=== PATIENT | male | born 1990 | race Caucasian/White ===

== ENCOUNTER 2016-09-13 13:14 | Emergency (ER) | payer SELFPAY | END 2016-09-13 14:45 | disposition left against medical advice (07) | LOC: ER1 13:14 | DX: Z53.21 Procedure and treatment not carried out due to patient leaving prior to being seen by health care provider (principal) | CPT/HCPCS: 93005 ==

== ENCOUNTER 2016-09-19 09:53 | Emergency (ER) | payer OTHER ==
[2016-09-19 10:16] LABS: HEMOGLOBIN 16.4 gm/dl (14.0-17.5); RED BLOOD COUNT 5.6 M/UL (4.20-5.50); WHITE BLOOD COUNT 8.9 K/UL (4.5-11.0)
[2016-09-19 10:38] LABS: BUN/CREATININE RATIO 24 (0-10)
== END 2016-09-19 11:25 | disposition home or self-care (01) ==
LOC: ER1 09:53
PROVIDERS: Family Medicine
DX: R07.89 Other chest pain (principal); F17.210 Nicotine dependence, cigarettes, uncomplicated; F11.10 Opioid abuse, uncomplicated
CPT/HCPCS: 36415; 71010; 80053; 82550; 82553; 83874; 84484; 85025; 93005; 96374; 96376; 99284

== ENCOUNTER 2016-10-10 16:22 | Emergency (ER) | payer OTHER | END 2016-10-10 17:14 | disposition home or self-care (01) | LOC: ER1 16:22 | DX: L08.9 Local infection of the skin and subcutaneous tissue, unspecified (principal) | CPT/HCPCS: 99282 ==

== ENCOUNTER 2020-12-31 15:21 | Emergency (ER) | payer OTHER ==
[~2020-12-31 15:21] MED LIST: EXPECTORANT200 MG PO; FLONASE 0.05% N16 GM; IBUPROFEN600 MG PO; MUCINEX DM ER1 EACH PO; PREDNISONE 50 M50 MG PO; TESSALON PERLE100 MG PO; ZITHROMAX250 MG PO
== END 2020-12-31 17:36 | disposition home or self-care (01) ==
LOC: ER1 15:21
DX: J06.9 Acute upper respiratory infection, unspecified (principal); F17.200 Nicotine dependence, unspecified, uncomplicated; Z20.822 Contact with and (suspected) exposure to COVID-19
CPT/HCPCS: 99284; U0002

== ENCOUNTER 2021-01-15 14:21 | Emergency (ER) | payer OTHER | END 2021-01-15 17:54 | disposition home or self-care (01) | LOC: ER1 14:21 | DX: U07.1 COVID-19 (principal); F17.200 Nicotine dependence, unspecified, uncomplicated | CPT/HCPCS: 99283; U0002 ==

== ENCOUNTER 2021-04-29 09:42 | Emergency (ER) | payer OTHER | END 2021-04-29 10:00 | disposition left against medical advice (07) | LOC: ER1 09:42 | DX: Z53.21 Procedure and treatment not carried out due to patient leaving prior to being seen by health care provider (principal) ==

== ENCOUNTER 2021-04-30 21:03 | Emergency (ER) | payer OTHER | END 2021-04-30 22:20 | disposition home or self-care (01) | LOC: ER1 21:03 | DX: R07.9 Chest pain, unspecified (principal); R06.02 Shortness of breath; F17.210 Nicotine dependence, cigarettes, uncomplicated | CPT/HCPCS: 93005; 99284 ==

== ENCOUNTER 2021-05-20 15:38 | Emergency (ER) | payer OTHER | END 2021-05-20 17:45 | disposition left against medical advice (07) | LOC: ER1 15:38 | DX: R05.9 Cough, unspecified (principal); R09.81 Nasal congestion; F17.200 Nicotine dependence, unspecified, uncomplicated | CPT/HCPCS: 99282 ==

== ENCOUNTER → 2021-11-18 | Outpatient (CLI) | payer OTHER | LOC: KOH-I 13:09 | DX: R07.9 Chest pain, unspecified (principal); F41.1 Generalized anxiety disorder; G47.00 Insomnia, unspecified; G62.9 Polyneuropathy, unspecified; I10 Essential (primary) hypertension; R33.9 Retention of urine, unspecified; B35.4 Tinea corporis; L30.9 Dermatitis, unspecified; B18.2 Chronic viral hepatitis C; R94.5 Abnormal results of liver function studies; K59.00 Constipation, unspecified; E78.5 Hyperlipidemia, unspecified | CPT/HCPCS: 71046 ==

== ENCOUNTER 2021-12-26 11:45 | Emergency (ER) | payer OTHER ==
[2021-12-26 12:38] LABS: RED BLOOD COUNT 5.11 M/UL (4.20-5.50); WHITE BLOOD COUNT 5.1 K/UL (4.5-11.0)
[2021-12-26 13:00] LABS: BUN/CREATININE RATIO 10 (0-10)
[2021-12-26] MEDS ORDERED: ALBUTEROL2.5 MG/3 M INH (15:34)
== END 2021-12-26 15:57 | disposition home or self-care (01) ==
LOC: ER1 11:45
PROVIDERS: Emergency Medicine
DX: J06.9 Acute upper respiratory infection, unspecified (principal); R06.00 Dyspnea, unspecified; Z20.822 Contact with and (suspected) exposure to COVID-19
CPT/HCPCS: 0240U; 71045; 80053; 82550; 82553; 84484; 85025; 85379; 93005; 94664; 99285